=== PATIENT | male | born 1990 | race Two or more races ===

== ENCOUNTER 2020-01-11 21:58 | Emergency (ER) | payer SELFPAY ==
[~2020-01-11] VITALS: Ht 185.4 cm; Wt 85.3 kg
[2020-01-11 22:55] VITALS: BP 146/108
--- NOTE | 2020-01-11 23:22 | NUR ---
Ear bud pulled out of pt's ear. VSS. Patient discharged to home in stable condition. Written and verbal after care instructions given. Patient verbalizes understanding of instruction. Pt ambulated with steady gait.
== END 2020-01-11 23:24 | disposition home or self-care (01) ==
LOC: ER 21:58
DX: T16.1XXA Foreign body in right ear, initial encounter (principal); F17.200 Nicotine dependence, unspecified, uncomplicated; X58.XXXA Exposure to other specified factors, initial encounter; Y93.89 Activity, other specified; Y92.89 Other specified places as the place of occurrence of the external cause; Y99.8 Other external cause status